=== PATIENT | male | born 1975 | race Caucasian/White ===

== ENCOUNTER 2017-02-13 13:21 | Emergency (ER) | payer MEDICARE, OTHER ==
[2017-02-13 14:50] LABS: HEMOGLOBIN 15.8 gm/dl (14.0-17.5); RED BLOOD COUNT 5.34 M/UL (4.20-5.50); WHITE BLOOD COUNT 7.2 K/UL (4.5-11.0)
[2017-02-13 15:06] LABS: BUN/CREATININE RATIO 8 (0-10)
== END 2017-02-13 18:30 | disposition home or self-care (01) ==
LOC: ER1 13:21
PROVIDERS: Preventive Medicine Occupational Medicine
DX: M94.0 Chondrocostal junction syndrome [Tietze] (principal); I25.2 Old myocardial infarction; Z87.891 Personal history of nicotine dependence
CPT/HCPCS: 36415; 71010; 80053; 80307; 81001; 82150; 82550; 82553; 83690; 83874; 84484; 85025; 93005; 96361; 96374; 96375; 99285; J2270; J2405; J7040